=== PATIENT | female | born 1970 | race Hispanic/Latino ===

== ENCOUNTER 2017-05-14 08:29 | Outpatient (CLI) | payer OTHER ==
--- NOTE | 2017-05-14 11:48 | MRI ---
MRI OF LEFT SHOULDER PERFORMED WITHOUT CONTRAST ENHANCEMENT: History: Status post fall last month with persistent shoulder pain. FINDINGS: There are mild AC joint hypertrophic changes present. There is a tendinopathic appearance to the supraspinatus tendon. The infraspinatus tendon appears int act. The arm is held in interval rotation. Due to the rotation it is difficult to visualize the intraartic ular portion of the biceps tendon which appears to be slightly thickened. Some of this is related to redundancy due to the internal rotation. Subscapularis muscle and tendon appear intact. Biceps tendon does lie in a normal position within the bicipital groove. No definitive labral abnormalities are seen. IMPRESSION: 1. Tendinopathy changes of the anterior aspect of the supraspinatus tendon and intraarticular portion of the biceps tendon. No signs of any significant rotator cuff tear. 2. The history states strain of the left trapezius muscle. I do not see any edema change associated w ith the trapezius. POS: [facility]
== END 2017-05-14 08:30 | disposition home or self-care (01) ==
LOC: MRI 08:29
PROVIDERS: ATTEND Family Medicine
DX: S46.812D Strain of other muscles, fascia and tendons at shoulder and upper arm level, left arm, subsequent encounter (principal)

== ENCOUNTER 2018-01-08 18:47 | Emergency (ER) | payer BC ==
[2018-01-08 19:28] LABS: #Basophils 0.1 thou/uL (0.0-0.2); #Eosinphils 0.3 thou/uL (0.0-0.7); #Lymphocytes 4.8 thou/uL (1.20-3.40); #Monocytes 0.7 thou/uL (0.11-0.59); #Neutrophils 6.2 thou/uL (1.40-6.50); %Basophils 1.1 % (0.0-1.0); %Eosinophils 2.7 % (0.0-10.0); %Lymphocytes 39.2 % (21.0-51.0); %Monocytes 5.6 % (0.0-10.0); %Neutrophils 51.3 % (42.0-75.0); Mean Corpuscular HGB CONC 34.9 g/dL (32.0-36.0); Mean Corpuscular Hemoglobin 31.1 pg (27.0-31.0); Mean Corpuscular Volume 89.3 fL (78.0-98.0); Mean Platelet Volume 7.4 fL (7.4-10.4); Platelet Count 266 thou/uL (130-400); Red Blood Cell (RBC) Count 5.15 mill/uL (4.20-5.40); White Blood Cell (WBC) Count 12.2 thou/uL (4.8-10.8)
[2018-01-08 19:45] LABS: Bilirubin Negative (Negative); Blood, Urine Negative (Negative); Clarity CLEAR (Clear); Glucose, Urine (Dipstick) Negative (Negative); Leukocyte Moderate (Negative); Nitrite Negative (Negative); Protein, Urine (Dipstick) Negative (Neg-Trace); Specific Gravity, Urine 1.009 (1.002-1.036); Urobilinogen 0.2 mg/dL (0.2-1.0); pH, Urine 5.5 (5.0-9.0)
[2018-01-08 19:47] LABS: Bacteria/HPF Rare-Few HPF (None Seen); Hyaline Casts/LPF 0-3 HYALINE CAST LPF (0-3 Hyaline); Pathc Cast-AUWi Flag 0.29 (0-2.49); Pregnancy Test - Urine (BHCG) Negative (Negative); Pregu Control Background? CLEAR/WHITE (CLR/WHITE); Pregu Control Bar Appear? YES (CONTROL BAR); Specific Gravity 1.009 (1.002-1.036); Squamous Epithelial 0-3 HPF (0-3)
[2018-01-08 19:52] LABS: ALT (SGPT) 82 U/L (8-55); AST (SGOT) 45 U/L (5-34); Albumin 4.8 g/dL (3.5-5.0); Alkaline Phosphatase 142 U/L (40-150); Anion Gap 16 mmol/L (10-20); BUN (Urea Nitrogen) 11 mg/dL (7.0-18.7); Bilirubin, Total 0.4 mg/dL (0.2-1.2); Calc. Creatinine Clearance 0 mL/min (70-130); Calcium 10.9 mg/dL (7.8-10.44); Carbon Dioxide 21 mmol/L (22-29); Chloride 105 mmol/L (98-107); Estimated GFR-MDRD 82; Globulin 4.3 g/dL (2.4-3.5); Glucose 95 mg/dL (70-105); Lipase 34 U/L (8-78); Potassium 4.2 mmol/L (3.5-5.1); Protein, Total 9.1 g/dL (6.0-8.3)
[2018-01-08 19:55] LABS: Sodium 138 mmol/L (136-145)
[2018-01-08] MEDS ORDERED: Ondansetron HCl/PF 4 MG/2 ML Vial ONE (20:55)
[2018-01-08] MEDS ORDERED: Ketorolac Tromethamine 30 MG/ML VIAL ONE (20:55)
--- NOTE | 2018-01-08 21:21 | CT ---
CT ABDOMEN AND PELVIS WITHOUT CONTRAST 01/08/18 HISTORY: Flank pain. Evaluate for kidney stone. COMPARISON: CT abdomen and pelvis without contrast from 2013. FINDINGS: Lung bases are clear. No pericardial effusion. Diffuse hepatic steatosis. Prior cholecystectomy. No nephroureterolithiasis or hydroureteronephrosis. No secondary evidence of a recently passed stone. Aortoiliac contour is nonaneurysmal. The spleen and pancreas are unremarkable. Adrenal glands are un remarkable. No retroperitoneal adenopathy. No dilated loops of large or small bowel. The appendix is not definitively visualized although there are no secondary signs of acute appendicit is. Small fat containing umbilical hernia. IMPRESSION: 1. No nephroureterolithiasis or hydroureteronephrosis. No secondary evidence of a recently passe d stone. 2. Hepatomegaly and diffuse hepatic steatosis. POS: [facility]
== END 2018-01-08 21:09 | disposition home or self-care (01) ==
LOC: ERS 18:47
DX: N12 Tubulo-interstitial nephritis, not specified as acute or chronic (principal); K21.9 Gastro-esophageal reflux disease without esophagitis; E78.5 Hyperlipidemia, unspecified; G43.909 Migraine, unspecified, not intractable, without status migrainosus; I10 Essential (primary) hypertension; Z79.899 Other long term (current) drug therapy
CPT/HCPCS: 74176; 80053; 81003; 81015; 81025; 83690; 85025; 87086; 96374; 96375; J1885; J2270; J2405

== ENCOUNTER 2019-09-20 12:28 | Emergency (ER) | payer BC ==
--- NOTE | 2019-09-20 13:55 | ULT ---
Exam: RIGHT LOWER EXTREMITY VENOUS ULTRASOUND WITH DOPPLER: HISTORY: Right lower extremity pain. COMPARISON: None. TECHNIQUE: Grayscale, color flow, Doppler imaging and spectral waveform analysis performed of the [facility] lower extremity venous system. FINDINGS: There is compressibility, presence of flow and augmentation the common femoral vein, femoral vein and popliteal vein. Flow in the greater saphenous vein, profunda femoral vein and posterior tibial vein. No abnormal echotexture is in the region of pain, at the right calf. IMPRESSION: No evidence of thrombus in the visualized right lower extremity deep venous system. Transcribed Date/Time: 09/20/2019 2:18 PM
== END 2019-09-20 14:40 | disposition home or self-care (01) ==
LOC: ERS 12:28
DX: I83.91 Asymptomatic varicose veins of right lower extremity (principal); K21.9 Gastro-esophageal reflux disease without esophagitis; E78.5 Hyperlipidemia, unspecified; G43.909 Migraine, unspecified, not intractable, without status migrainosus; I10 Essential (primary) hypertension; E11.9 Type 2 diabetes mellitus without complications; Z79.899 Other long term (current) drug therapy

== ENCOUNTER 2021-11-22 12:16 | Outpatient (CLI) | payer BC | END 2021-11-22 12:17 | disposition home or self-care (01) | LOC: BICMAMMO 12:16 | PROVIDERS: ATTEND Family Medicine | DX: Z12.31 Encounter for screening mammogram for malignant neoplasm of breast (principal) | CPT/HCPCS: 77063; 77067 ==

== ENCOUNTER 2022-08-28 15:34 | Outpatient (CLI) | payer BC | END 2022-08-28 15:35 | disposition home or self-care (01) | LOC: BICRAD 15:34 | PROVIDERS: ATTEND Physician Assistant | DX: J45.901 Unspecified asthma with (acute) exacerbation (principal) | CPT/HCPCS: 71046 ==

== ENCOUNTER 2022-10-01 17:19 | Observation (INO) | payer BC ==
[2022-10-01 17:51] LABS: #Basophils 0.1 thou/uL (0.0-0.2); #Eosinphils 0.4 thou/uL (0.0-0.7); #Lymphocytes 5.6 thou/uL (1.20-3.40); #Monocytes 0.6 thou/uL (0.11-0.59); #Neutrophils 5.3 thou/uL (1.40-6.50); %Basophils 0.5 % (0.0-1.0); %Lymphocytes 46.8 % (21.0-51.0); %Monocytes 5.1 % (0.0-10.0); %Neutrophils 44.5 % (42.0-75.0); Hemoglobin 15.8 g/dL (12.0-16.0); Mean Corpuscular HGB CONC 33.3 g/dL (32.0-36.0); Mean Corpuscular Hemoglobin 29.8 pg (27.0-31.0); Mean Corpuscular Volume 89.4 fl (78.0-98.0); Mean Platelet Volume 7.9 fL (7.4-10.4); Platelet Count 269 10x3/uL (130-400); RBC Distribution Width 12.5 % (11.5-14.5); Red Blood Cell (RBC) Count 5.32 mill/uL (4.20-5.40); White Blood Cell (WBC) Count 11.8 10x3/uL (4.8-10.8)
[2022-10-01 18:11] LABS: ALT (SGPT) 61 U/L (8-55); AST (SGOT) 40 U/L (5-34); Albumin 4.5 g/dL (3.5-5.0); Alkaline Phosphatase 160 U/L (40-110); Anion Gap 16 mmol/L (10-20); BUN (Urea Nitrogen) 15 mg/dL (9.8-20.1); Bilirubin, Total 0.2 mg/dL (0.2-1.2); Calc. Creatinine Clearance 0 mL/min (70-130); Calcium 10.2 mg/dL (7.8-10.44); Carbon Dioxide 21 mmol/L (22-29); Chloride 106 mmol/L (98-107); Estimated GFR 86; Globulin 4.4 g/dL (2.4-3.5); Glucose 136 mg/dL (70-105); Potassium 4.7 mmol/L (3.5-5.1); Protein, Total 8.9 g/dL (6.0-8.3); Sodium 138 mmol/L (136-145)
[2022-10-01 18:15] LABS: INR-International Normal Ratio 0.9; PTT 28.4 sec (22.9-36.1); Prothrombin Time 12.9 sec (12.0-14.7)
[2022-10-01 18:47] LABS: Bilirubin Negative (Negative); Blood, Urine Negative (Negative); Clarity Turbid (Clear); Glucose, Urine (Dipstick) Normal (Negative); Ketone, Urine Negative (Negative); Leukocyte Negative Leu/uL (Negative); Nitrite Negative (Negative); Protein, Urine (Dipstick) Negative (Neg-Trace); Specific Gravity, Urine 1.018 (1.002-1.036); Urobilinogen Normal mg/dL (Less than 2)
[2022-10-01] MEDS ORDERED: Ondansetron ODT 4 MG TAB PO PRN (19:26)
[2022-10-01] MEDS ORDERED: Dextrose 50% Abboject 50 ML SYRINGE SLOW IVP PRN (19:26)
[2022-10-01] MEDS ORDERED: Acetaminophen 325 MG TAB PO PRN (19:26)
[2022-10-01] MEDS ORDERED: Calcium Carbonate 500 MG ChewTAB PO PRN (19:26)
[2022-10-01] MEDS ORDERED: HumaLOG 300 UNITS/3 ML VIAL SC PRN ×2 (19:26)
[2022-10-01] MEDS ORDERED: Ondansetron PF 4 MG/2 ML Vial IVP PRN (19:26)
[2022-10-01] MEDS ORDERED: Senokot S 8.6-50 MG TAB PO PRN (19:26)
[2022-10-01] MEDS ORDERED: Dextrose 5% in Water 1,000 ML IV PRN (19:26)
[2022-10-01] MEDS ORDERED: hydrALAZINE 20 MG/ML VIAL SLOW IVP PRN (19:29)
[2022-10-01] MEDS: Sodium Chloride 0.9% 1,000 ML IV SCH (22:11)
[2022-10-01] MEDS: Famotidine/PF 20 mg/2ml Vial SLOW IVP SCH (22:11)
[2022-10-01 23:14] VITALS: BMI 38.7
[2022-10-02 05:11] LABS: #Basophils 0.1 thou/uL (0.0-0.2); #Eosinphils 0.3 thou/uL (0.0-0.7); #Monocytes 0.6 thou/uL (0.11-0.59); #Neutrophils 4.8 thou/uL (1.40-6.50); %Basophils 0.7 % (0.0-1.0); %Eosinophils 2.7 % (0.0-10.0); %Lymphocytes 46.4 % (21.0-51.0); %Monocytes 5.2 % (0.0-10.0); %Neutrophils 45.1 % (42.0-75.0); Hemoglobin 14.2 g/dL (12.0-16.0); Mean Corpuscular HGB CONC 33.8 g/dL (32.0-36.0); Mean Corpuscular Hemoglobin 30.6 pg (27.0-31.0); Mean Corpuscular Volume 90.5 fl (78.0-98.0); Mean Platelet Volume 7.7 fL (7.4-10.4); Platelet Count 237 10x3/uL (130-400); RBC Distribution Width 12.3 % (11.5-14.5); Red Blood Cell (RBC) Count 4.64 mill/uL (4.20-5.40); White Blood Cell (WBC) Count 10.7 10x3/uL (4.8-10.8)
[2022-10-02 05:23] LABS: ALT (SGPT) 52 U/L (8-55); AST (SGOT) 33 U/L (5-34); Albumin 3.9 g/dL (3.5-5.0); Alkaline Phosphatase 133 U/L (40-110); Anion Gap 13 mmol/L (10-20); BUN (Urea Nitrogen) 16 mg/dL (9.8-20.1); Bilirubin, Total 0.3 mg/dL (0.2-1.2); Calc. Creatinine Clearance 123 mL/min (70-130); Calcium 9.3 mg/dL (7.8-10.44); Carbon Dioxide 22 mmol/L (22-29); Cardiac Risk 4.9 (Less than 4.5); Chloride 108 mmol/L (98-107); Cholesterol 210 mg/dl (< 200 Desired); Estimated GFR 87; Globulin 3.5 g/dL (2.4-3.5); Glucose 147 mg/dL (70-105); HDL Cholesterol 43 mg/dL (>60 Neg Risk); LDL Cholesterol, Calculated 130 mg/dL; Potassium 3.9 mmol/L (3.5-5.1); Protein, Total 7.4 g/dL (6.0-8.3); Sodium 139 mmol/L (136-145); Triglycerides 185 mg/dL (Less than 150)
[2022-10-02 05:25] LABS: Troponin I Less than 0.010 ng/mL (< 0.028)
[2022-10-02] MEDS ORDERED: Lorazepam 2 MG/ML VIAL SLOW IVP SCH ×2 (08:45→14:00)
[2022-10-02] MEDS ORDERED: Aspirin 81 mg Enteric Coated Tablet PO SCH (09:00)
[2022-10-02] MEDS ORDERED: Loratadine 10 MG TAB PO SCH (09:00)
[2022-10-02] MEDS: Famotidine/PF 20 mg/2ml Vial SLOW IVP SCH (10:03)
[2022-10-02 16:08] VITALS: BP 156/91; TEMP 98.3
[2022-10-02] MEDS: Sodium Chloride 0.9% 1,000 ML IV SCH (16:49)
[2022-10-02] MEDS ORDERED: Atorvastatin Calcium 40 MG TAB PO SCH (21:00)
== END 2022-10-02 16:40 | disposition home or self-care (01) ==
LOC: SUATTDRO 17:19 → ERS 17:19 → ERHOLD 19:26 → NEURO 21:43
PROVIDERS: ADMIT Internal Medicine; ATTEND Internal Medicine
DX: R47.81 Slurred speech (principal); H53.8 Other visual disturbances; G43.009 Migraine without aura, not intractable, without status migrainosus; K76.0 Fatty (change of) liver, not elsewhere classified; E11.9 Type 2 diabetes mellitus without complications; I10 Essential (primary) hypertension; E78.00 Pure hypercholesterolemia, unspecified; K21.9 Gastro-esophageal reflux disease without esophagitis; I08.8 Other rheumatic multiple valve diseases; E66.9 Obesity, unspecified; Z68.38 Body mass index [BMI] 38.0-38.9, adult; Z79.84 Long term (current) use of oral hypoglycemic drugs; Z79.899 Other long term (current) drug therapy; Z88.0 Allergy status to penicillin; Z91.040 Latex allergy status
CPT/HCPCS: 36415; 36416; 70450; 70551; 71045; 76705; 80053; 80061; 80307; 81003; 83036; 84484; 85025; 85610; 85730; 93005; 93010; 93306; 93880; 94760; 96372; 96374; 96376; G0378; J1650; J1815; J2060; J7050; Q0162; S0028

== ENCOUNTER 2023-11-06 14:07 | Outpatient (CLI) | payer BC | END 2023-11-06 14:08 | disposition home or self-care (01) | LOC: BICULT 14:07 | PROVIDERS: ATTEND Family Medicine | DX: Z12.31 Encounter for screening mammogram for malignant neoplasm of breast (principal); R22.31 Localized swelling, mass and lump, right upper limb | CPT/HCPCS: 76999; 77063; 77067 ==

== ENCOUNTER 2023-12-25 22:15 | Emergency (ER) | payer BC ==
[2023-12-25] MEDS ORDERED: Ondansetron ODT 4 MG TAB ONE (22:55)
== END 2023-12-25 22:55 | disposition left against medical advice (07) ==
LOC: ERS 22:15
DX: Z53.21 Procedure and treatment not carried out due to patient leaving prior to being seen by health care provider (principal)
CPT/HCPCS: Q0162

== ENCOUNTER 2025-03-21 15:37 | Outpatient (CLI) | payer BC | END 2025-03-21 15:38 | disposition home or self-care (01) | LOC: BICRAD 15:37 | PROVIDERS: ATTEND Family Medicine | DX: M25.512 Pain in left shoulder (principal) ==